=== PATIENT | female | born 1995 | race African-American/Black ===

== ENCOUNTER 2021-03-27 20:12 | Emergency (ER) | payer MEDICAID ==
[~2021-03-27] VITALS: Ht 182.9 cm; Wt 112.7 kg
[2021-03-27] MEDS ORDERED: MethylPREDNISolone SOD SUCC 125 MG/2 ML VIAL IVP ONE (20:30)
[2021-03-27] MEDS ORDERED: FAMOTIDINE 10 MG/ML 2 ML VIAL IVP ONE (20:30)
[2021-03-27 21:00] VITALS: BP 107/72
== END 2021-03-27 21:35 | disposition left against medical advice (07) ==
LOC: EMS 20:14 → EDBD 20:14 → EMS 21:35
DX: T78.1XXA Other adverse food reactions, not elsewhere classified, initial encounter (principal); J45.909 Unspecified asthma, uncomplicated; Z91.010 Allergy to peanuts; X58.XXXA Exposure to other specified factors, initial encounter
CPT/HCPCS: 96374; 96375; 99284; J2930; J3490

== ENCOUNTER 2021-03-29 18:46 | Emergency (ER) | payer MEDICAID ==
[~2021-03-29] VITALS: Ht 185.4 cm; Wt 113.6 kg
[2021-03-29 19:05] VITALS: BP 129/55
== END 2021-03-29 21:50 | disposition left against medical advice (07) ==
LOC: EMS 18:47
DX: T78.1XXA Other adverse food reactions, not elsewhere classified, initial encounter (principal); Z53.21 Procedure and treatment not carried out due to patient leaving prior to being seen by health care provider